=== PATIENT | female | born 2000 | race Hispanic/Latino ===

== ENCOUNTER 2022-03-17 21:04 | Emergency (ER) | payer SELFPAY ==
[~2022-03-17] VITALS: Ht 160 cm; Wt 107.0 kg
[2022-03-17] MEDS ORDERED: SPRINTEC1 EACH PO (22:31)
[2022-03-17] MEDS ORDERED: ONDANSETRON ODT4 MG PO (22:33)
== END 2022-03-17 22:58 | disposition home or self-care (01) ==
LOC: FSED 21:17
DX: N92.1 Excessive and frequent menstruation with irregular cycle (principal); E66.9 Obesity, unspecified
CPT/HCPCS: 85025; 99283